=== PATIENT | female | born 1985 | race American Indian/Alaskan Native ===

== ENCOUNTER 2018-12-07 05:34 | Inpatient (IN) | payer MEDICAID ==
[2018-12-07] MEDS ORDERED: LACTATED RINGERS 2,000 ML ONE (06:04)
[2018-12-07] MEDS ORDERED: FAMOTIDINE 20 MG/2 ML INJ IV ONE (06:25)
[2018-12-07] MEDS ORDERED: METOCLOPRAMIDE 10 MG/2 ML INJ IV ONE (06:25)
[2018-12-07] MEDS ORDERED: BICITRA ORAL LIQD 30ML PO ONE (06:25)
[2018-12-07 06:41] LABS: Basophils # (Auto) 0.1 K/mm3 (0.0-0.1); Basophils % (Auto) 0.6 % (0.0-1.8); Eosinophils # (Auto) 0.3 K/mm3 (0.0-0.4); Eosinophils % (Auto) 3.2 % (0.0-4.3); Hematocrit 33.3 % (30.3-42.9); Hemoglobin 11.5 gm/dl (10.1-14.3); Lymphocytes # (Auto) 2.3 K/mm3 (1.2-5.4); Lymphocytes % (Auto) 27.2 % (13.4-35.0); Mean Corpuscular HGB Conc 35 % (30-34); Mean Corpuscular Volume 84 fl (79-97); Monocytes # (Auto) 0.7 K/mm3 (0.0-0.8); Monocytes % (Auto) 7.7 % (0.0-7.3); Platelet Count 292 K/mm3 (140-440); Red Blood Count 3.96 M/mm3 (3.65-5.03); Red Cell Distribution Width 13.7 % (13.2-15.2)
[2018-12-07] MEDS ORDERED: OXYTOCIN 20 UNIT/1000ML DRIP 20 UNITS/1,000 ML BAG IV SCH ×2 (07:00→11:30)
[2018-12-07] MEDS ORDERED: LACTATED RINGERS 1,000 ML IV SCH (07:00)
[2018-12-07] MEDS ORDERED: ceFAZolin/Water 2 GM/20 ML 2 GM/20 ML SYRINGE IV ONE (07:03)
--- NOTE | 2018-12-07 07:16 | Anesthesia Consultation ---
Anesthesia Consult and Med Hx Date of service: 12/07/18 - Airway Anesthetic Teeth Evaluation: Good ROM Head & Neck: Adequate Mental/Hyoid Distance: Adequate Mallampati Class: Class II Intubation Access Assessment: Good - Pulmonary Exam CTA: Yes - Cardiac Exam Cardiac Exam: RRR - Pre-Operative Health Status ASA Pre-Surgery Classification: ASA2 Proposed Anesthetic Plan: Spinal - Pulmonary Hx Asthma: No COPD: No Hx Pneumonia: No - Cardiovascular System Hx Hypertension: No - Central Nervous System Hx Seizures: No Hx Psychiatric Problems: No - Endocrine Hx Renal Disease: No Hx End Stage Renal Disease: No Hx Hypothyroidism: No Hx Hyperthyroidism: No - Hematic Hx Anemia: No Hx Sickle Cell Disease: No - Other Systems Hx Alcohol Use: No
[2018-12-07] MEDS ORDERED: HYDROmorphone 1 MG/1 ML INJ IV PRN ×2 (07:17→08:00)
--- NOTE | 2018-12-07 07:17 | Anesthesia Day of Surgery ---
Anesthesia Day of Surgery - Day of Surgery Patient Examined: Yes Patient H&P Reviewed: Yes Patient is NPO: Yes
[2018-12-07] MEDS ORDERED: DEXMEDETOMIDINE 200 MCG/2 ML VIAL IV ONE (07:28)
[2018-12-07] MEDS ORDERED: ceFAZolin/STERILE WATER 2 GM/20 ML SYRINGE IV NR (07:30)
[2018-12-07] MEDS ORDERED: ePHEDrine SULFATE 50 MG/1 ML INJ ONE (07:55)
--- NOTE | 2018-12-07 07:55 | History and Physical Report ---
History of Present Illness Date of examination: 12/07/18 Date of admission: 12/07/18 05:34 Chief complaint: I'm here for my History of present illness: Patient is a 33 year old who presents for elective repeat at 39 weeks. She has had an uncomplicated course. Her GBS is negative. Past History Past Medical History: no pertinent history Past Surgical History: section - Obstetrical History Expected Date of Delivery: 12/13/18 Actual Gestation: 39 Week(s) 1 Day(s) : 3 Medications and Allergies Allergies Allergy/AdvReac Type Severity Reaction Status Date / Time No Known Allergies Allergy Verified 12/07/18 05:45 Home Medications Medication Instructions Recorded Confirmed Last Taken Type No Known Home Medications [No 12/07/18 12/07/18 Unknown History Reported Home Medications] Active Meds: Active Medications Hydromorphone HCl (Dilaudid) 0.5 mg IV Q5M PRN PRN Reason: Breakthrough Pain Stop: 12/07/18 20:00 Hydromorphone HCl (Dilaudid) 0.5 mg IV Q4H PRN PRN Reason: breakthrough pain > 7/10 Oxytocin/Sodium Chloride (Pitocin/Ns 20 Unit/1000ml Drip) 20 units in 1,000 mls @ 0 mls/hr IV TITR LAUREN Lactated Ringer's (Lactated Ringers) 1,000 mls @ 2,250 mls/hr IV PREOP LAUREN Stop: 12/08/18 07:27 Last Admin: 12/07/18 06:53 Dose: 2,250 mls/hr Documented by: Naloxone HCl (Narcan 0.4 Mg/1 Ml) 0.2 mg IV Q2MIN PRN PRN Reason: Res Rate </= 8 or 02 SAT < 92% Ondansetron HCl (Zofran) 4 mg IV Q8H PRN PRN Reason: Nausea And Vomiting Promethazine HCl (Phenergan) 25 mg PO Q6H PRN PRN Reason: Nausea And Vomiting Promethazine HCl (Phenergan) 25 mg AL Q6H PRN PRN Reason: Nausea And Vomiting Sodium Chloride (Sodium Chloride Flush Syringe 10 Ml) 10 ml IV PRN PRN PRN Reason: flush Review of Systems All systems: negative Genitourinary: deferred - Physical Exam Breasts: Positive: deferred Cardiovascular: Regular rate, Normal S1, Normal S2 Lungs: Positive: Clear to auscultation, Normal air movement Abdomen: Positive: normal appearance, soft, normal bowel sounds. Negative: distention, tenderness Genitourinary (Female): Positive: normal external genitalia, normal perenium Vulva: both: normal Vagina: Positive: normal moisture. Negative: discharge Cervix: Negative: lesion, discharge Uterus: Positive: normal size, normal contour Adnexa: both: normal Anus/Rectum: Positive: normal perianal skin, heme negative. Negative: rectal mass, hemorrhoids Extremities: Deep Tendon Reflex Grade: Normal +2 - Obstetrical Cervical Dilatation: 0 Results Result Diagrams: 12/07/18 06:16 Abnormal lab results 12/07/18 Range/Units 06:16 MCHC 35 H (30-34) % Hernando % (Auto) 7.7 H (0.0-7.3) % All other labs normal. Assessment and Plan IUP at 39.2 here for elective repeat . Consents signed and placed on chart.
[2018-12-07] MEDS ORDERED: NALOXONE 0.4 MG/1 ML INJ IV PRN ×2 (08:00→11:30)
[2018-12-07] MEDS ORDERED: ONDANSETRON 4 MG/2 ML INJ IV PRN (08:00)
[2018-12-07] MEDS ORDERED: PROMETHAZINE 25 MG TAB PO PRN (08:00)
[2018-12-07] MEDS ORDERED: PROMETHAZINE 25 MG RECT SUPP PR PRN (08:00)
[2018-12-07] MEDS ORDERED: HYDROmorphone 1 MG/1 ML INJ ONE (08:45)
[2018-12-07] MEDS ORDERED: WATER FOR IRRIG STERILE 1,500 ML BOTTLE IR ONE (09:00)
[2018-12-07] MEDS ORDERED: SODIUM CHLORIDE 0.9% IRR 1,500 ML BOTTLE IR ONE (09:00)
--- NOTE | 2018-12-07 09:26 | Post Anesthesia Evaluation ---
- Post Anesthesia Evaluation Patient Participated: Yes Airway Patent: Yes Stable Respiratory Function: Yes Nausea/Vomiting: No Temp > 96.8F: Yes Pain Manageable: Yes Adequeate Hydration: Yes Anesthesia Complications: No Block Receding Appropriately: Yes Patient on Ventilator: No
--- NOTE | 2018-12-07 09:28 | Operative Report ---
Operative Report Operative Report: The operative report for patient Esteban Randall Date of service 12/07/2018 Preoperative diagnosis: Intrauterine at 39-2/7 weeks 2. Previous 2 Postoperative diagnosis: Same with extensive adhesions Procedure: Repeat low transverse section Surgeon: Dr. Patricia Solares EBL: 500 mL Urine output: 200 mL clear IV fluids: 1700 mL Findings: Viable male in the vertex occiput posterior position. Weight 7 lbs. 9 oz. 3576 g Apgars 9 and 9]. Otherwise normal pelvic anatomy Specimens: None Complications: None Procedure: The patient was admitted to the OR with IV running and in place. She was properly identified as herself. She was given spinal anesthesia in the OR without difficulty. She was placed in the dorsal supine position with a leftward tilt. A Hill catheter was inserted. She was then prepped and draped in the normal sterile fashion. An Allis test was used to confirm adequate anesthesia. Once confirmed, the incision was made with the scalpel and carried to the underlying fascia using the scalpel and the Bovie. The fascia was incised in the midline and incision was extended bilaterally using the curved Chandler scissors. The fascia was then dissected from the underlying rectus muscles in a series of sharp and blunt dissection using the Chandler scissors and the scalpel due to significant adhesive disease. Muscles were in the in the midline sharply using Chandler scissors and the peritoneum was entered into thai ply as well. Adhesive disease was noted to cover the area from the lower uterine segment up to the fundus of the uterus making movement of the uterus difficult. A bladder blade was then placed into the incision to protect the bladder. A bladder flap was not created due to the poor integrity of the lower uterine segment. Hysterotomy incision was then made in the scalpel. Upon uterine entry, the amniotic sac was ruptured for clear fluid. The was then delivered in the occiput [posterior] position. His mouth and nose were suctioned on the field. The cord was clamped and cut and he was handed to the waiting NICU personnel. The uterus was then exteriorized and cleared of all clots and debris. The hysterotomy incision was then closed in a running locked fashion using 0 Vicryl. The abdomen was then copiously irrigated with warm normal saline. Following this the uterus was replaced into the abdominal cavity. At this point the muscles were reapproximated in the midline using individual sutures of 0 Vicryl. Following this the fascia was closed in a running fashion using 0 Vicryl. Tissue was then copiously irrigated. A retention suture was placed in the subcuticular fat. Skin was closed in a running fashion using 3-0 Monocryl. The sponge lap needle and instrument counts were correct 2. The patient tolerated the procedure well. She was taken to recovery in stable condition.
[2018-12-07] MEDS ORDERED: SENNOSIDES 8.6 MG TAB PO PRN (11:30)
[2018-12-07] MEDS ORDERED: SIMETHICONE 80 MG CHEW TAB PO PRN (11:30)
[2018-12-07] MEDS ORDERED: WITCH HAZEL/ GLYCERIN PAD TP PRN (11:30)
[2018-12-07] MEDS ORDERED: LANOLIN/ZINC/DIMETHICONE (LANSINOH) 7 GM TP PRN (11:30)
[2018-12-07] MEDS ORDERED: D5W/LACTATED RINGERS 1,000 ML IV SCH (11:30)
[2018-12-07] MEDS: MORPHINE 2 MG/1 ML INJ IV PRN ×2 (12:14→20:55)
[2018-12-07] MEDS: KETOROLAC 30 MG/1 ML INJ IV PRN ×2 (14:39→20:41)
[2018-12-07 23:51] LABS: Hemoglobin 8.6 gm/dl (10.1-14.3)
[2018-12-08] MEDS: oxyCODONE /ACETAMINOPHEN 5-325MG TAB PO PRN ×4 (00:09→18:54)
[2018-12-08] MEDS: IBUPROFEN 800 MG TAB PO PRN (02:40)
[2018-12-08] MEDS: PRENATAL VIT27-FE FUMARATE-FOLIC ACID VIT TAB PO SCH (09:54)
[2018-12-08] MEDS: FERROUS SULFATE 325 MG TAB PO SCH (09:54)
--- NOTE | 2018-12-08 23:14 | Progress Note ---
Assessment and Plan POD 1 s/p ltcs. Doing well. Encourage ambulation. Continue routine care. Subjective - Subjective Date of service: 12/08/18 Interval history: Patient is a 33 year old who presents for elective repeat at 39 weeks. She has had an uncomplicated course. Her GBS is negative. Patient reports: appetite normal, voiding normally, pain well controlled, ambulating normally : doing well Objective - Vital Signs Latest vital signs: Vital Signs Temp Pulse Resp BP BP Pulse Ox 12/08/18 15:43 99.0 F 94 H 20 107/59 97 12/08/18 08:06 98.2 F 87 20 109/65 99 12/08/18 00:32 97.9 F 94 H 20 116/72 99 Intake and Output 12/08/18 12/08/18 12/09/18 14:59 22:59 06:59 Intake Total 120 360 Output Total 600 Balance -480 360 Intake: Oral 120 120 Intake, Free Water 240 Output: Urine 600 Void 600 Other: Total, Intake Amount 120 120 Total, Output Amount 600 # Voids Void 1 - Exam Breasts: Present: deferred Cardiovascular: Present: Regular rate, Normal S1, Normal S2 Lungs: Present: Clear to auscultation, Normal air movement Abdomen: Present: normal appearance, soft, normal bowel sounds Uterus: Present: normal, firm Extremities: Present: normal Incision: Present: normal, dry, intact - Labs Labs: Abnormal lab results 12/07/18 Range/Units 23:19 Hgb 8.6 L (10.1-14.3) gm/dl Hct 24.0 L D (30.3-42.9) %
[2018-12-09] MEDS: oxyCODONE /ACETAMINOPHEN 5-325MG TAB PO PRN ×3 (01:48→21:35)
[2018-12-09] MEDS: IBUPROFEN 800 MG TAB PO PRN ×3 (03:21→18:00)
[2018-12-09] MEDS: FERROUS SULFATE 325 MG TAB PO SCH (10:55)
[2018-12-09] MEDS: PRENATAL VIT27-FE FUMARATE-FOLIC ACID VIT TAB PO SCH (10:55)
--- NOTE | 2018-12-09 21:41 | Progress Note ---
Assessment and Plan POD 2 s/p rltcs. Doing well. Patient improved from yesterday. Plan for discharge on tomorrow. Subjective - Subjective Date of service: 12/09/18 Interval history: Patient is a 33 year old who presents for elective repeat at 39 weeks. She has had an uncomplicated course. Her GBS is negative. Patient reports: appetite normal, voiding normally, pain well controlled, ambulating normally [place]: doing well Objective - Vital Signs Latest vital signs: Vital Signs Temp Pulse Resp BP BP Pulse Ox 12/09/18 15:40 97.8 F 81 18 116/50 12/09/18 08:05 98.7 F 71 18 99/52 12/09/18 00:57 98.8 F 96 H 18 118/74 100 Intake and Output 12/09/18 12/09/18 12/09/18 06:59 14:59 22:59 Intake Total 240 480 240 Balance 240 480 240 Intake: Oral 480 240 Intake, Free Water 240 Other: Total, Intake Amount 240 120 # Voids Void 1 1 1 - Exam Cardiovascular: Present: Regular rate, Normal S1, Normal S2 Lungs: Present: Clear to auscultation, Normal air movement Abdomen: Present: normal appearance, soft Extremities: Present: normal Incision: Present: normal, dry, intact
--- NOTE | 2018-12-09 21:45 | Discharge Summary ---
Providers - Providers Date of Admission: 12/07/18 05:34 Date of discharge: 12/10/18 Attending physician: JESSE FLORES Primary care physician: JESSE FLORES Hospitalization Reason for admission: section Delivery: Procedure: repeat low transverse Procedure details: see op report Incision: normal, dry, intact Discharge diagnosis: IUP at term delivered Hernandez baby: male Hospital course: unremarkable Condition at discharge: Good Disposition: DC-01 TO HOME OR SELFCARE Plan - Discharge Medications Prescriptions: Ferrous Sulfate [Feosol 325 MG tab] 325 mg PO BID #60 tablet Ibuprofen [Motrin] 800 mg PO Q8HR PRN #40 tablet PRN Reason: Pain, Moderate (4-6) oxyCODONE /ACETAMINOPHEN [Percocet 5/325] 2 tab PO Q6HR PRN #40 tablet PRN Reason: Pain - Provider Discharge Summary Activity: routine, no sex for 6 weeks, no heavy lifting 4 weeks, no strenuous exercise Diet: routine Instructions: routine Additional instructions: [] Smoking cessation referral if applicable(refer to patient education folder for contact #) [] Refer to [facility] Booklet Call your doctor immediately for: * Fever > 100.5 * Heavy vaginal bleeding ( >1 pad per hour) * Severe persistent headache * Shortness of breath * Reddened, hot, painful area to leg or breast * Drainage or odor from incision. * Keep incision clean and dry at all times and follow doctor's instructions regarding bathing/showering - Follow up plan Follow up: JESSE FLORES MD [Primary Care Provider] - 14 Days Forms: [facility] Discharge Summary, Discharge Signature Page
[2018-12-10] MEDS: IBUPROFEN 800 MG TAB PO PRN (00:55)
[2018-12-10] MEDS: oxyCODONE /ACETAMINOPHEN 5-325MG TAB PO PRN ×2 (06:00→11:13)
[2018-12-10] MEDS: PRENATAL VIT27-FE FUMARATE-FOLIC ACID VIT TAB PO SCH (09:59)
[2018-12-10] MEDS: FERROUS SULFATE 325 MG TAB PO SCH (09:59)
[2018-12-10 12:41] VITALS: BP 108/70
== END 2018-12-10 12:15 | disposition home or self-care (01) | DRG 765 ==
LOC: APU 05:34 → OB 11:31
PROVIDERS: ADMIT Obstetrics & Gynecology; ATTEND Obstetrics & Gynecology
PROC: 10D00Z1 Extraction of Products of Conception, Low, Open Approach (ICD-10-PCS; principal; 2018-12-07)
DX: O34.211 Maternal care for low transverse scar from previous cesarean delivery (principal); D62 Acute posthemorrhagic anemia; O64.0XX0 Obstructed labor due to incomplete rotation of fetal head, not applicable or unspecified; O99.62 Diseases of the digestive system complicating childbirth; K66.0 Peritoneal adhesions (postprocedural) (postinfection); Z3A.39 39 weeks gestation of pregnancy; Z37.0 Single live birth; O99.02 Anemia complicating childbirth
CPT/HCPCS: 36415; 85014; 85018; 85025; 86592; 86850; 86900; 86901; 88307; G0378; A6250; C1765; J0690; J1170; J1885; J2270; J2405; J2590; J2765; J3490; J7120